=== PATIENT | female | born 1995 | race Caucasian/White ===

== ENCOUNTER 2018-05-19 22:34 | Emergency (ER) | payer OTHER ==
[~2018-05-19] VITALS: Ht 165.1 cm; Wt 59.0 kg
[2018-05-20] MEDS ORDERED: PREDNISONE20 MG PO (00:56)
== END 2018-05-20 01:20 | disposition home or self-care (01) ==
LOC: ED 22:34
DX: M32.9 Systemic lupus erythematosus, unspecified (principal); Z88.1 Allergy status to other antibiotic agents; Z88.8 Allergy status to other drugs, medicaments and biological substances; Z88.2 Allergy status to sulfonamides
CPT/HCPCS: 99283; J7512